=== PATIENT | female | born 1975 | race Caucasian/White ===

== ENCOUNTER → 2023-01-26 10:38 | Outpatient (CLI) | payer MEDICAID, SELFPAY ==
[2023-01-26 18:21] LABS: Amphetamine/Metha Screen,Urine Negative ng/ml (<1000)
[2023-01-26 18:23] LABS: Barbiturates Screen,Urine Negative ng/ml (<200)
[2023-01-26 18:24] LABS: Cannabinoid Screen,Urine Negative ng/ml (<50)
[2023-01-26 18:25] LABS: Cocaine Screen,Urine Negative ng/ml (<300); Methadone Screen,Urine Negative ng/ml (<300)
[2023-01-26 18:26] LABS: Opiate Screen,Urine Negative ng/ml (<300)
[2023-01-26 18:27] LABS: Phencyclidine Screen,Urine Negative ng/ml (<25)
[2023-01-26 18:30] LABS: Benzodiazepines Screen,Urine Positive ng/ml (<200)
== END ==
PROVIDERS: PCP Emergency Medicine; Visit Provider Emergency Medicine
DX: Z79.899 Other long term (current) drug therapy (principal)
CPT/HCPCS: 80305

== ENCOUNTER 2023-03-13 14:30 | Outpatient (RCR) | payer MEDICAID, SELFPAY | END 2023-03-13 14:35 | disposition home or self-care (01) | LOC: PT 14:30 | PROVIDERS: PCP Emergency Medicine; Visit Provider Emergency Medicine | DX: M54.2 Cervicalgia (principal); M54.9 Dorsalgia, unspecified | CPT/HCPCS: 97010; 97012; 97014; 97110; 97163; G0283 ==

== ENCOUNTER → 2023-03-26 15:27 | Outpatient (CLI) | payer MEDICAID, SELFPAY ==
[2023-03-26 18:24] LABS: Barbiturates Screen,Urine Negative ng/ml (<200)
[2023-03-26 18:25] LABS: Benzodiazepines Screen,Urine Positive ng/ml (<200)
[2023-03-26 18:26] LABS: Amphetamine/Metha Screen,Urine Negative ng/ml (<1000); Cannabinoid Screen,Urine Negative ng/ml (<50)
[2023-03-26 18:27] LABS: Cocaine Screen,Urine Negative ng/ml (<300)
[2023-03-26 18:28] LABS: Methadone Screen,Urine Negative ng/ml (<300); Opiate Screen,Urine Positive ng/ml (<300)
[2023-03-26 18:29] LABS: Phencyclidine Screen,Urine Negative ng/ml (<25)
== END ==
PROVIDERS: PCP Emergency Medicine; Visit Provider Emergency Medicine
DX: Z79.899 Other long term (current) drug therapy (principal)
CPT/HCPCS: 80305

== ENCOUNTER → 2023-05-22 13:50 | Outpatient (CLI) | payer MEDICAID, SELFPAY ==
[2023-05-22 19:56] LABS: Amphetamine/Metha Screen,Urine Negative ng/ml (<1000)
[2023-05-22 19:57] LABS: Barbiturates Screen,Urine Negative ng/ml (<200)
[2023-05-22 19:58] LABS: Benzodiazepines Screen,Urine Positive ng/ml (<200); Cannabinoid Screen,Urine Negative ng/ml (<50)
[2023-05-22 19:59] LABS: Cocaine Screen,Urine Negative ng/ml (<300); Methadone Screen,Urine Negative ng/ml (<300)
[2023-05-22 20:00] LABS: Opiate Screen,Urine Positive ng/ml (<300)
[2023-05-22 23:29] LABS: Phencyclidine Screen,Urine Negative ng/ml (<25)
== END ==
PROVIDERS: PCP Emergency Medicine; Visit Provider Emergency Medicine
DX: Z79.899 Other long term (current) drug therapy (principal)
CPT/HCPCS: 80305

== ENCOUNTER → 2023-06-20 10:19 | Outpatient (CLI) | payer MEDICAID, SELFPAY ==
--- NOTE | 2023-06-20 10:19 | MM_ITS ---
PROCEDURE INFORMATION: Exam: MG Bilateral Screening 3D Mammography Exam date and time: 06/20/2023 10:38 AM Age: 47 years old Clinical indication: Screening examination TECHNIQUE: Imaging protocol: Bilateral Screening tomosynthesis and 2D mammography including computer-aided detection (CAD) when performed. COMPARISON: No relevant prior studies available. FINDINGS: MAMMOGRAPHY: Breast composition: The breasts are heterogeneously dense, which may obscure small masses. Mass: 1.3 cm mass in the posterior left upper outer quadrant may reflect a benign intramammary lymph node. Questionable irregular 2.2 cm mass in the middle third of the right 12 o'clock axis Architectural distortion: None. Calcifications: No suspicious calcifications. Asymmetric density: None. Skin thickening: None. Axillary adenopathy: None. IMPRESSION: 1. Patient to be recalled for spot compression views of the left breast in the CC and MLO projections, a full 90 degree lateral view, and left breast ultrasound for further evaluation of a left breast mass. 2. Patient to be recalled for spot compression views of the right breast in the CC and MLO projections, a full 90 degree lateral view, and right breast ultrasound for further evaluation of a right breast mass. ASSESSMENT: BI-RADS Category 0: Incomplete- Need Additional Imaging Evaluation and/or Prior Mammograms for Comparison
== END ==
PROVIDERS: PCP Emergency Medicine; Visit Provider Emergency Medicine
DX: Z12.31 Encounter for screening mammogram for malignant neoplasm of breast (principal)
CPT/HCPCS: 77063; 77067

== ENCOUNTER → 2023-07-18 02:00 | Outpatient (CLI) | payer MEDICAID, SELFPAY | PROVIDERS: PCP Emergency Medicine; Visit Provider Emergency Medicine | DX: Z79.899 Other long term (current) drug therapy (principal) ==

== ENCOUNTER → 2023-07-18 15:55 | Outpatient (CLI) | payer MEDICAID, SELFPAY ==
--- NOTE | 2023-07-18 16:07 | XR_ITS ---
PROCEDURE INFORMATION: Exam: XR Lumbosacral Spine Exam date and time: 07/18/2023 4:10 PM Age: 47 years old Clinical indication: Low back pain TECHNIQUE: Imaging protocol: Radiologic exam of the lumbosacral spine. Views: 2 or 3 views. COMPARISON: No relevant prior studies available. FINDINGS: Bones/joints: Mild multilevel degenerative spurring at L2-L3 to L5-S1 with associated minimal disc space narrowing at L4-L5. Vertebral body heights are intact. No evident fracture. Soft tissues: Unremarkable. IMPRESSION: Mild degenerative changes. No acute finding.
--- NOTE | 2023-07-18 16:07 | XR_ITS ---
PROCEDURE INFORMATION: Exam: XR Cervical Spine Exam date and time: 07/18/2023 4:10 PM Age: 47 years old Clinical indication: Neck pain TECHNIQUE: Imaging protocol: Radiologic exam of the cervical spine. Views: 2 or 3 views. COMPARISON: No relevant prior studies available. FINDINGS: Bones/joints: Mild degenerative disc disease at C5-C6 and C6-C7 with disc space narrowing. Alignment, vertebral body heights and disc spaces otherwise preserved. Soft tissues, atlanto dens interval and craniovertebral junction are intact. No acute fracture. Soft tissues: See Bones/joints finding. IMPRESSION: Mild degenerative changes.
[2023-07-18 18:57] LABS: Basophils # 0.1 K/mm3 (0-0.2); Basophils % 0.6 % (0.1-2.0); Eosinophils # 0.3 K/mm3 (0.0-0.4); Eosinophils % 2.8 % (0.1-12.0); Hematocrit 45.5 % (37.0-47.0); Hemoglobin 14.5 g/dL (12.2-16.2); Lymphocytes # 4.2 K/mm3 (0.7-4.5); Lymphocytes % 38.6 % (10-50); Mean Corpuscular HGB Conc 31.9 g/dL (31.8-35.4); Mean Corpuscular Hemoglobin 31.9 pg (27.0-31.2); Mean Platelet Volume 10.6 fl (7.4-10.4); Monocytes # 0.8 K/mm3 (0.1-1.0); Monocytes % 7.6 % (1.7-9.3); Neutrophils # 5.5 K/mm3 (1.8-7.8); Neutrophils % 50.4 % (37.0-80.0); Platelet Count 238 K/mm3 (142-424); Red Blood Count 4.55 M/mm3 (4.20-5.40); Red Cell Distribution Width 12.4 % (11.5-17.5); White Blood Count 10.9 K/mm3 (4.8-10.8)
[2023-07-18 19:36] LABS: Alanine Aminotransferase 15 U/L (12-78); Albumin Level 4.5 g/dl (3.5-5.0); Albumin/Globulin Ratio 1.6 (1.1-1.8); Alkaline Phosphatase 69 U/L (38-126); Anion Gap 13.2 mEq/L (5-15); Aspartate Amino Transferase 22 U/L (14-36); Blood Urea Nitrogen 13 mg/dl (7-17); Calcium 9.1 mg/dl (8.4-10.2); Carbon Dioxide 25 mmol/L (22.0-30.0); Chloride 108 mmol/L (98-107); Chol/HDL Ratio 6.4 (1-3.5); Cholesterol 230 mg/dl (140-200); Estimated Glomerular Filt Rate 77 ml/min (>60); GFR (African American) 93 ML/MIN (>60); Globulin 2.8 g/dL (1.3-3.2); Glucose 84 mg/dl (74-100); HDL Cholesterol 36 mg/dl (40-60); Potassium 4.2 mmoL/L (3.5-5.1); Sodium 142 mmol/L (136-145); Total Protein,Serum 7.3 g/dl (6.3-8.2); Triglycerides 194 mg/dl (30-150); VLDL Cholesterol 39 mg/dL (0-40)
[2023-07-18 19:45] LABS: Bilirubin,Total 0.1 mg/dl (0.2-1.3)
[2023-07-18 19:53] LABS: 25-OH Vitamin D, Total 33.2 ng/mL (30-100)
[2023-07-18 20:09] LABS: Thyroid Stimulating Hormone 1.45 uIU/mL (0.465-4.68)
[2023-07-18 20:28] LABS: Vitamin B12 725 pg/mL (239-931)
[2023-07-18 21:29] LABS: Amphetamine/Metha Screen,Urine Negative ng/ml (<1000); Barbiturates Screen,Urine Negative ng/ml (<200)
[2023-07-18 21:30] LABS: Benzodiazepines Screen,Urine Positive ng/ml (<200)
[2023-07-18 21:31] LABS: Cannabinoid Screen,Urine Positive ng/ml (<50)
[2023-07-18 21:32] LABS: Direct LDL Cholesterol 143.47 mg/dL (100-129)
[2023-07-18 21:32] LABS: Cocaine Screen,Urine Negative ng/ml (<300)
[2023-07-18 21:33] LABS: Methadone Screen,Urine Negative ng/ml (<300)
[2023-07-18 22:38] LABS: Opiate Screen,Urine Positive ng/ml (<300)
[2023-07-18 22:42] LABS: Phencyclidine Screen,Urine Negative ng/ml (<25)
== END ==
PROVIDERS: PCP Emergency Medicine; Visit Provider Emergency Medicine
DX: M54.2 Cervicalgia (principal); M54.9 Dorsalgia, unspecified; M54.50 Low back pain, unspecified; E78.5 Hyperlipidemia, unspecified; Z79.899 Other long term (current) drug therapy
CPT/HCPCS: 72040; 72100; 80053; 80061; 80305; 82306; 82607; 83036; 84443; 85025

== ENCOUNTER → 2023-08-06 08:09 | Outpatient (CLI) | payer MEDICAID, SELFPAY ==
--- NOTE | 2023-08-06 08:45 | MR_ITS ---
FINAL REPORT CLINICAL HISTORY: FREQUENT HEADACHES 12ML PROHANCE FINDINGS: Multiplanar MR imaging of the brain was performed without and with contrast. There is no evidence of intracranial hemorrhage or mass. No abnormal extra-axial fluid collection is seen. The ventricular size is within normal limits. There is increased T2 signal in the bilateral centrum semiovale. Findings are abnormal but nonspecific and may represent moderate chronic ischemic/gliotic change or demyelination. There is no evidence of shift of the midline structures. The posterior fossa and brainstem have an unremarkable appearance. No area of abnormal restricted diffusion is identified. No abnormal contrast enhancement is seen. Normal major vessel vascular flow voids are noted. There is moderate mucosal thickening in multiple sinuses. IMPRESSION: Increased T2 signal in the bilateral centrum semiovale is abnormal but nonspecific and may represent moderate chronic ischemic/gliotic change or demyelination. No hemorrhage or mass. Reviewed, Interpreted and Dictated by Philip Elmore III, MD Transcribed by Kanwal Patino Authenticated and [facility]
[2023-08-06 08:49] LABS: Basophils # 0.1 K/mm3 (0-0.2); Basophils % 0.9 % (0.1-2.0); Eosinophils # 0.4 K/mm3 (0.0-0.4); Eosinophils % 4.4 % (0.1-12.0); Hematocrit 43.8 % (37.0-47.0); Hemoglobin 13.9 g/dL (12.2-16.2); Lymphocytes # 2.8 K/mm3 (0.7-4.5); Lymphocytes % 30.3 % (10-50); Mean Corpuscular HGB Conc 31.7 g/dL (31.8-35.4); Mean Corpuscular Hemoglobin 31.8 pg (27.0-31.2); Mean Corpuscular Volume 100.2 fl (81-99); Mean Platelet Volume 9.9 fl (7.4-10.4); Monocytes # 0.5 K/mm3 (0.1-1.0); Monocytes % 5.5 % (1.7-9.3); Neutrophils # 5.5 K/mm3 (1.8-7.8); Neutrophils % 58.9 % (37.0-80.0); Platelet Count 238 K/mm3 (142-424); Red Blood Count 4.37 M/mm3 (4.20-5.40); Red Cell Distribution Width 12.6 % (11.5-17.5); White Blood Count 9.3 K/mm3 (4.8-10.8)
[2023-08-06 09:26] LABS: Erythrocyte Sedimentation Rate 10 mm/hr (0-20)
[2023-08-07 12:42] LABS: C-Reactive Protein 0.4 mg/L (0-4)
[2023-08-07 15:44] LABS: Albumin 3.6 g/dL (2.9-4.4); Alpha-1-Globulin 0.2 g/dL (0.0-0.4); Alpha-2-Globulin 0.8 g/dL (0.4-1.0); Anti-Centromere B Antibodies <0.2 AI (0.0-0.9); Anti-DNA (DS) Ab Qn <1 IU/mL (0-9); Anti-Jo-1 <0.2 AI (0.0-0.9); Anti-Smith Antibody <0.2 AI (0.0-0.9); Antichromatin Antibodies <0.2 AI (0.0-0.9); Antiscleroderma-70 Antibodies <0.2 AI (0.0-0.9); Ceruloplasmin 22.8 mg/dL (19.0-39.0); Protein, Total 6.4 g/dL (6.0-8.5); Rapid Plasma Reagin Ab Titer Non Reactive titer (NonRea<1:1); Sjogren's Anti-SS-A <0.2 AI (0.0-0.9); Sjogren's Anti-SS-B <0.2 AI (0.0-0.9)
== END ==
PROVIDERS: PCP Emergency Medicine; Visit Provider Specialist
DX: R51.9 Headache, unspecified (principal); R23.1 Pallor; F11.10 Opioid abuse, uncomplicated; F19.11 Other psychoactive substance abuse, in remission; G25.0 Essential tremor; G93.1 Anoxic brain damage, not elsewhere classified; M54.2 Cervicalgia
CPT/HCPCS: 36415; 70553; 82390; 84155; 84165; 85025; 85651; 86140; 86225; 86235; 86334; 86593; A9576

== ENCOUNTER → 2023-08-07 09:43 | Day surgery (SDC) | payer MEDICAID, SELFPAY ==
[2023-08-06 10:36] VITALS: BMI 23.1
== END ==
PROVIDERS: PCP Emergency Medicine; Visit Provider Surgery
PROC: 0DJD8ZZ Inspection of Lower Intestinal Tract, Via Natural or Artificial Opening Endoscopic (ICD-10-PCS; CPT 45378; principal; 2023-08-07 10:30)
DX: Z53.09 Procedure and treatment not carried out because of other contraindication (principal); Z12.11 Encounter for screening for malignant neoplasm of colon; Z91.199 Patient's noncompliance with other medical treatment and regimen due to unspecified reason
CPT/HCPCS: 45378

== ENCOUNTER → 2023-08-21 13:23 | Outpatient (CLI) | payer MEDICAID, SELFPAY ==
[2023-08-21 12:59] LABS: Barbiturates Screen,Urine Negative ng/ml (<200)
[2023-08-21 13:00] LABS: Amphetamine/Metha Screen,Urine Negative ng/ml (<1000)
[2023-08-21 13:01] LABS: Benzodiazepines Screen,Urine Positive ng/ml (<200); Cannabinoid Screen,Urine Negative ng/ml (<50)
[2023-08-21 13:02] LABS: Cocaine Screen,Urine Negative ng/ml (<300); Methadone Screen,Urine Negative ng/ml (<300)
[2023-08-21 13:05] LABS: Phencyclidine Screen,Urine Negative ng/ml (<25)
[2023-08-21 13:06] LABS: Opiate Screen,Urine Positive ng/ml (<300)
== END ==
PROVIDERS: PCP Emergency Medicine; Visit Provider Emergency Medicine
DX: Z79.899 Other long term (current) drug therapy (principal)
CPT/HCPCS: 80305

== ENCOUNTER → 2023-08-23 09:11 | Outpatient (CLI) | payer MEDICAID, SELFPAY | PROVIDERS: PCP Obstetrics & Gynecology; Visit Provider Obstetrics & Gynecology | DX: N39.0 Urinary tract infection, site not specified (principal) ==

== ENCOUNTER → 2023-08-23 14:09 | Outpatient (CLI) | payer MEDICAID, SELFPAY ==
--- NOTE | 2023-08-23 14:13 | MM_ITS ---
PROCEDURE INFORMATION: Exam: MG Bilateral Diagnostic Breast Tomosynthesis Exam date and time: 08/23/2023 2:01 PM Age: 47 years old Clinical indication: Patient recalled on the basis of a screening mammogram for further evaluation; sabine. Breast densities TECHNIQUE: Imaging protocol: Bilateral Diagnostic tomosynthesis and 2D mammography including computer-aided detection (CAD) when performed. Unilateral or bilateral exam. COMPARISON: MG MM DIG SCREENING MAMM BI W/CAD 06/20/2023 10:38 AM FINDINGS: MAMMOGRAPHY: Digital diagnostic spot compression views of the posterior left upper outer quadrant demonstrate a persistent 1.3 cm ovoid mass Digital diagnostic spot compression views of the posterior right 12 o'clock axis demonstrates a persistent lobulated 2.2 cm mass better seen in the craniocaudal projection IMPRESSION: Patient to be recalled for targeted bilateral breast ultrasound for further evaluation of bilateral breast masses ASSESSMENT: BI-RADS Category 0: Incomplete- Need Additional Imaging Evaluation and/or Prior Mammograms for Comparison
[2023-08-23 17:05] LABS: Microscopic, Urine URINE MICROSCOPIC (MICROSCOPIC)
[2023-08-23 17:29] LABS: Appearance,Urine CLEAR (Clear); Bilirubin,Urine Negative (Negative); Blood, Urine 1+ (Negative); Color,Urine YELLOW (Yellow); Glucose,Urine (UA) Negative (Negative); Ketones,Urine Negative (Negative); Leukocyte Esterase,Urine Negative (Negative); Nitrate,Urine Negative (Negative); Protein,Urine Negative (Negative); Specific Gravity, Urine 1.015 (1.005-1.030); Urobilinogen,Urine 0.2 EU/dl (0.2)
[2023-08-23 17:55] LABS: WBC,Urine Occasional #/hpf (0-3)
== END ==
PROVIDERS: Obstetrics & Gynecology; PCP Emergency Medicine; Visit Provider Emergency Medicine
DX: R92.8 Other abnormal and inconclusive findings on diagnostic imaging of breast (principal); R31.9 Hematuria, unspecified
CPT/HCPCS: 77062; 77066; 81001; G0279

== ENCOUNTER → 2023-10-17 11:06 | Outpatient (CLI) | payer MEDICAID, SELFPAY ==
--- NOTE | 2023-10-17 11:06 | US_ITS ---
PROCEDURE: US TRANSVAGINAL CLINICAL INDICATION: enlarged uterus COMPARISON: No exams were available for comparison FINDINGS: Transvaginal and transabdominal sonographic images of the pelvis were obtained. UTERUS: 11.7cm x 7.2cmx 5.2cm retrovert with a combined endometrial thickness of 10.9mm. There are 2 large fibroids off to the left of the fundus of the uterus. Fibroid 1. Measures 14.4 cm x 8.6 cm x 9.9 cm. Fibroid 2. Measures 5.7 cm x 4.6 cm x 4.1 cm. Fibroid 2 seems more superior to fibroid 1. LEFT OVARY: 4.2cmx3.2cmx2.4cm with a volume of 16.4ml. RIGHT OVARY: 3.4cmx 2.8cmx2.7cm with a volume of 13.4ml. There is a follicle in the right ovary that measures 1.6 cm x 1.6 cm x 1.9 cm. There is a 2nd smaller follicle measuring 1.6 cm. Both ovaries are seen and appear normal. Doppler flow to both ovaries are seen. There is no fluid in the cul-de-sac. IMPRESSION: 1. Retroverted uterus with at least 2 large fibroids. Difficult exam secondary to the large fibroids present on the uterus. 2. Both fibroids are to the left of the uterus. Fibroid 1 measures 14.4 cm and fibroid 2 measures 5.7 cm. 3. These fibroids are best seen transabdominally. 4. There are 2 small follicles on the right ovary, the largest of which is 1.9 centimeters. Dictated by: Enoch Hwang MD 10/17/2023 16:03 Enoch Hwang MD in [facility] 10/17/2023 16:03
--- NOTE | 2023-10-17 11:06 | US_ITS ---
PROCEDURE INFORMATION: Exam: US Left Breast, Complete US Right Breast, Complete Exam date and time: 10/17/2023 11:35 AM Age: 47 years old Clinical indication: Patient recalled for further evaluation of bilateral breast masses TECHNIQUE: Imaging protocol: Complete ultrasound of all four quadrants of the left breast and the retroareolar regions, including ultrasound of the axilla when performed. Complete ultrasound of all four quadrants of the right breast and the retroareolar regions, including ultrasound of the axilla when performed. COMPARISON: MG MM DIG MAMM BI DX W/CAD 08/23/2023 2:01 PM FINDINGS: Breast: Sonographic images of the left 1 o'clock axis 11 cm from the nipple demonstrates an ovoid uniformly hypoechoic well-circumscribed solid mass measuring 1.1 x 0.4 x 1.3 cm in dimension most closely corresponding to the mass on mammography. 0.7 cm cyst in the left 3 o'clock axis 8 cm from the nipple. Sonographic images of the right 12 o'clock axis 9 cm from the nipple demonstrates a 1 cm cyst. In the right 3 o'clock axis 4 cm from the nipple is an irregularly marginated hypoechoic solid mass measuring 1.1 x 0.5 x 0.9 cm in dimension. In the right 9 o'clock axis 4 cm from the nipple is an ovoid uniformly hypoechoic well-circumscribed solid mass measuring 1.5 x 1.1 x 0.5 cm in dimension. IMPRESSION: 1. Indeterminate solid mass in the right 3 o'clock axis not well seen on mammography. Ultrasound-guided core biopsy is recommended for further evaluation. 2. Right 12 o'clock axis mammographically detected mass likely reflects underlying cystic change in surrounding dense normal fibroglandular structures on sonography. A six-month follow-up diagnostic right mammogram is recommended to ensure stability of the pattern identified. 3. Additional hypoechoic well-circumscribed masses bilaterally, 1 on each side and 1 of which is seen in the left upper outer quadrant on mammography. The 2 additional solid masses are likely benign in etiology. A six-month follow-up targeted bilateral breast ultrasound is recommended to ensure stability over time. ASSESSMENT: BI-RADS Category 4: Suspicious
== END ==
PROVIDERS: PCP Obstetrics & Gynecology; Visit Provider Obstetrics & Gynecology
DX: N63.10 Unspecified lump in the right breast, unspecified quadrant (principal); N63.20 Unspecified lump in the left breast, unspecified quadrant; N85.2 Hypertrophy of uterus; R92.8 Other abnormal and inconclusive findings on diagnostic imaging of breast
CPT/HCPCS: 76641; 76830

== ENCOUNTER 2023-11-09 10:06 | Outpatient (CLI) | payer MEDICAID, SELFPAY ==
[2023-11-09 12:28] LABS: Amphetamine/Metha Screen,Urine Negative ng/ml (<1000); Barbiturates Screen,Urine Negative ng/ml (<200); Benzodiazepines Screen,Urine Positive ng/ml (<200); Cannabinoid Screen,Urine Negative ng/ml (<50); Cocaine Screen,Urine Negative ng/ml (<300); Methadone Screen,Urine Negative ng/ml (<300); Opiate Screen,Urine Positive ng/ml (<300); Phencyclidine Screen,Urine Negative ng/ml (<25)
[2023-11-15 08:24] LABS: Alprazolam Negative (Cutoff=100); Benzodiazepines Positive ng/mL (Cutoff=100); Clonazepam Negative (Cutoff=100); Codeine Negative (Cutoff=100); Flurazepam Negative (Cutoff=100); Hydrocodone Positive (.); Hydromorphone Negative (Cutoff=100); Lorazepam Negative (Cutoff=100); Midazolam Negative (Cutoff=100); Morphine Negative (Cutoff=100); Opiates Positive (.); Temazepam Positive (.); Triazolam Negative (Cutoff=100)
[2023-11-15 13:21] LABS: Gabapentin,Urine 52.7 ug/mL (.)
== END 2023-11-09 23:59 ==
LOC: LAB.DROPOF 11-10 10:08
PROVIDERS: PCP Internal Medicine; Visit Provider Internal Medicine
DX: Z79.899 Other long term (current) drug therapy (principal)
CPT/HCPCS: 80307; 80346; 80361; 80365; G0480

== ENCOUNTER 2023-11-14 09:40 | Outpatient (CLI) | payer MEDICAID, SELFPAY ==
--- NOTE | 2023-11-14 09:40 | US_ITS ---
FINAL REPORT CLINICAL HISTORY: rt breast mass 300 -- DR. MCCULLOUGH FINDINGS: ULTRASOUND-GUIDED RIGHT BREAST CORE BIOPSY TECHNIQUE: Limited images were obtained to localize region of interest. The right breast was prepped in a routine sterile fashion and locally anesthetized with 1% lidocaine. Standard written informed consent was obtained. Lesion was localized at 3:00. An 11-gauge vacuum assisted hand-held device was utilized. The needle was positioned posterior to the lesion. Multiple vacuum assisted core samples were obtained. The lesion was noted to be significantly smaller following biopsy. A biopsy marker clip was deployed in satisfactory position. Postbiopsy mammogram showed postbiopsy changes with clip in satisfactory position. Procedure was well tolerated . CONCLUSION: 1. Technically successful ultrasound guided vacuum assisted core biopsy of right breast lesion as above. 2. 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 Pathology is concordant with mammographic findings. Recommend 6 month sonographic follow-up as routine benign postbiopsy surveillance. Authenticated and [facility]
--- NOTE | 2023-11-14 09:44 | MM_ITS ---
FINAL REPORT CLINICAL HISTORY: . clip placement FINDINGS: MAMMOGRAM LEFT TECHNIQUE: Standard digital 2-D views COMPARISON: Prebiopsy exam 08/23/2023 DENSITY: There are scattered areas of fibroglandular density FINDINGS: Post biopsy marker clip is noted to be in satisfactory position. Biopsy marker clip is noted in the right breast at 3:00 near a previously placed clip. Postbiopsy changes are noted. IMPRESSION: Biopsy marker clip in good position RECOMMENDATION: Given benign findings, short-term sonographic follow-up is recommended right breast in 6 months as part of post benign biopsy normal surveillance. Six-month bilateral sonographic follow-up right breast mammographic follow-up was also recommended on the diagnostic ultrasound performed prior to biopsy findings for continued surveillance of other abnormalities. Authenticated and [facility]
== END 2023-11-14 23:59 ==
LOC: RAD 09:40
PROVIDERS: PCP Internal Medicine; Visit Provider Obstetrics & Gynecology
DX: N63.11 Unspecified lump in the right breast, upper outer quadrant (principal)
CPT/HCPCS: 19083; 77065; C2618